=== PATIENT | male | born 1950 | race Caucasian/White ===

== ENCOUNTER 2021-03-10 10:59 | Emergency (ER) | payer MEDICARE, SELFPAY ==
--- NOTE | ~2021-03-10 | MR_ITS ---
MRI OF THE BRAIN WITHOUT IV CONTRAST INDICATION: Possible hemorrhagic contusion on CT. COMPARISON: Head CT 03/10/2021. TECHNIQUE: Multiplanar multisequence MR imaging of the brain was obtained without IV contrast. FINDINGS: There is no hydrocephalus, extra-axial surface collection, or herniation. There is global cerebral volume loss and there is mild chronic microangiopathy. The major flow voids at the skull base are preserved. There is no acute infarct on diffusion-weighted imaging. There is no intracranial hemorrhage on the gradient recalled echo acquisition. The midline structures are normal. The cerebellar tonsils are normally positioned. The cerebellum and brainstem are normal. The craniocervical junction is normal. Osseous marrow signal intensity is homogenous. There is left parietal scalp swelling. MR/MR head/brain wo con IMPRESSION: - The previous CT finding was artifactual. There are no hemorrhagic contusions. - There is global cerebral volume loss and there is mild chronic microangiopathy. - There is left parietal scalp swelling.
--- NOTE | ~2021-03-10 | CT_ITS ---
EXAMINATION: CT BRAIN AND CT CERVICAL SPINE WITHOUT CONTRAST. CLINICAL INFORMATION: Fall and head strike. COMPARISON: None TECHNIQUE: 5 mm thin axial and reformatted 2 mm thin sagittal and coronal images of brain were obtained. Axial 3 mm thin and reformatted 2 mm thin sagittal and coronal images of cervical spine were obtained. DLP 1207 FINDINGS: Brain: There is no acute extra-axial bleed, masses or midline shift. There is hyperdensity seen along the left inferior frontal lobe cortex question contusion versus the heart and artifact. It is visualized on axial image 129/8 and sagittal image 43/11. There is no acute infarction in evolution. The lateral ventricles are symmetrical in size and configuration without enlargement. The nava to white matter difference is maintained. Bone windows reveal no calvarial abnormality. There is a left parietal scalp hematoma Bilateral paranasal sinuses and mastoid air cells are well-aerated. Cervical spine: There is mild straightening of cervical lordosis. The vertebral heights and alignment is normal. There is loss of C3-C4, C4-C5 and C6-C7 disc heights with moderate ventral and mild posterior spondylosis. The craniovertebral junction and C1-C2 alignment is normal. The thyroid, submandibular and parotid glands are symmetrical and normal. The prevertebral and paravertebral soft tissues are normal. CT/CT cervical spine wo con IMPRESSION: Left posterior parietal lobe scalp hematoma but no calvarial fracture. No underlying parietal lobe abnormality. Slight hyperdensity along the left inferior frontal lobe question hemorrhagic contusion versus artifact. Correlate with clinical history. There is no acute fracture, dislocation or subluxation the cervical spine. There are degenerative disc changes as described above.
[2021-03-10 11:08] VITALS: BP 106/84; BP 128/79; PULSE 76; PULSE 78; RESP 18; TEMP 36.7; O2SAT 96; O2SAT 97; BMI 25.1
--- NOTE | 2021-03-10 11:20 | ED.ALCOHOL ---
HPI - Alcohol General Chief Complaint: ETOH/Substance Use Stated Complaint: FALL? ETOH INTOX Time Seen by Provider: 03/10/21 11:20 Source: patient and EMS Mode of arrival: EMS Limitations: altered mental status History of Present Illness HPI narrative: 70 y/o male with history of rheumatoid arthritis, DM, HLD, osteoporosis who presents to the ER via EMS after he tripped and fell in front of the hospital just prior to arrival. He admits to drinking 3 beers and 3 scotch drinks [employer]. He drinks daily and has no interest in detox or sobriety. He denies any pain or injuries but states he did hit the back of his head. He is not on blood thinners and has no headache or neck pain. He denies chest pain, dizziness or lightheadedness. MD complaint: alcohol intoxication Last drink: Hours (ago) Chronic alcohol use: Yes Previous visits for alcohol intoxication: No Recent trauma: Yes Related Data Home Medications Medication Instructions Recorded Confirmed alendronate 70 mg tablet 70 mg PO QWEEK 09/23/20 09/23/20 atorvastatin 10 mg tablet 10 mg PO DAILY 09/23/20 09/23/20 bupropion HCl 100 mg tablet 100 mg PO BID 09/23/20 09/23/20 glipizide 5 mg tablet 5 mg PO DAILY 09/23/20 09/23/20 metformin 500 mg tablet 500 mg PO DAILY 09/23/20 09/23/20 sertraline 50 mg tablet 50 mg PO DAILY 09/23/20 09/23/20 Previous Rx's Medication Instructions Recorded tofacitinib 11 mg tablet,extended 11 mg PO DAILY #30 tab 09/08/20 release 24 hr prednisone 10 mg tablet 10 mg PO DAILY #30 tab 03/10/21 Allergies Allergy/AdvReac Type Severity Reaction Status Date / Time Unable to Assess Allergy Unverified 03/10/21 11:21 Review of Systems Review of Systems: Constitutional: No Fever, No Chills Cardiovascular: No Chest Pain, No SOB Respiratory: No Cough, No Sputum Gastrointestinal: No Nausea, No Vomiting, No Diarrhea, No abdominal Pain Genitourinary: No Dysuria, No Urinary Frequency, No Hematuria Musculoskeletal: No joint pain, No Myalgias Skin: +Skin Lesions, No rash Neuro: No Weakness, No Numbness, No Dizziness, No Headache Psych: No Anxiety/Panic, No Depression Heme/Lymph: + Bruising, No Lymphadenopathy [facility] Past Medical History Attestation statement: The following information was validated with the patient. Medical History Osteoporosis Seropositive rheumatoid arthritis Social History Social History Alcohol intake: current Alcohol intake frequency: 3 or more drinks per day Alcohol type: beer Smoking Status: Never smoker Use of substances other than those prescribed or required for medical reasons: No Advance Directives: No Advance Directives Information Provided: No Physical Exam Vital Signs: Vital Signs: Last Vital Signs Temp 98.1 F 03/10/21 11:08 Pulse 78 03/10/21 11:08 Resp 18 03/10/21 11:08 BP 106/84 03/10/21 11:08 Pulse Ox 97 03/10/21 11:08 Body Mass Index 25.1 Appearance: Alert. Oriented X3. No acute distress. Intoxicated. Head: left posterior scalp with large hematoma, superficial abrasions, no active bleeding, no deformity or palpable skull fractures. Eyes: Pupils equal, round and reactive to light. EOMI, no nystagmus. ENT: Pharynx normal. Dentition is poor, mucus membranes are moist. TMs are normal bilaterally. Neck: Normal inspection. Neck supple. CVS: Normal heart rate and rhythm. Pulses normal. Respiratory: No respiratory distress. Breath sounds normal. Abdomen: Soft and nontender. +BS x4 Skin: Skin warm and dry. Normal skin color. Normal skin turgor. No rashes. Extremities: No lower extremity edema. Pelvis is stable. Nontender shoulders and elbows, normal ROM. Neuro: Oriented X 3. No motor deficit. No sensory deficit. Intoxicated however ambulates with a steady gait. Course Course Course Narrative: 70 y/o male presenting s/p witnessed mechanical fall in the setting of ETOH intoxication. Neuro exam is non-focal. Will get CT head given known trauma as well as basic lab workup. Patient agreeable with plan. Pleasant and cooperative. Reevaluation(s) Reevaluation #1: CT head showing possible hemorrhagic contusion in the frontal lobe. Will get MRI for further assessment. ETOH level 200s. Reevaluation #2: MRI brain is unremarkable, NO hemorrhagic contusion appreciated. He has a sober ride home, declining detox. Stable for discharge home. MDM - Alcohol Lab Data Result diagrams: 03/10/21 11:51 03/10/21 11:51 Labs: Lab Results 03/10/21 03/10/21 03/10/21 Range/Units 11:51 11:51 11:51 WBC 6.2 (4.8-10.8) X10*3/uL RBC 4.02 L (4.60-5.80) X10*6/uL Hgb 13.2 L (14.0-18.0) g/dl Hct 37.1 L (42-52) % MCV 92.3 (80-98) fL MCH 32.8 (27.0-33.0) pg MCHC 35.6 (31.0-36.0) g/dl RDW 13.4 (11.0-16.0) % Plt Count 150 L (160-400) X10*3/uL MPV 10.2 (9.4-12.4) fL Immature Gran % (Auto) 1.0 H (0.0-0.4) % Neut % (Auto) 63.1 (45-73) % Lymph % (Auto) 28.0 (20-40) % Bucks % (Auto) 6.8 (2-11) % Eos % (Auto) 0.8 (0-4) % Baso % (Auto) 0.3 (0-2) % Lymph # (Auto) 1.7 (1.2-4.9) X10*3/uL Bucks # (Auto) 0.4 (0.1-1.2) X10*3/uL Eos # (Auto) 0.1 (0.0-0.4) X10*3/uL Baso # (Auto) 0.0 (0.0-0.2) X10*3/uL Abs Immat Gran (auto) 0.06 H (0.00-0.03) X10*3/uL Absolute Neuts (auto) 3.9 (2.0-8.3) X10*3/uL Absolute Nucleated RBC 0.000 (0.0-0.012) X10*3/uL Nucleated RBC % (auto) 0.0 (0.0-0.2) /100WBC Sodium 131 L (135-145) mmol/L Potassium 4.3 (3.3-5.1) mmol/L Chloride 100 (96-108) mmol/L Carbon Dioxide 22 (22-29) mmol/L Anion Gap 13 (12-20) BUN 19 H (9-16) mg/dL Creatinine 1.30 (0.5-1.4) mg/dL Estim Creat Clear Calc 52.1 Estimated GFR 54 Random Glucose 223 H (60-115) mg/dL Calcium 8.7 (8.4-10.2) mg/dL Magnesium 1.8 (1.6-2.6) mg/dL Total Bilirubin 1.2 H (0.0-1.0) mg/dL Direct Bilirubin 0.4 (0.0-0.5) mg/dL AST 26 (5-37) U/L ALT 22 (0-40) U/L Alkaline Phosphatase 79 (39-117) U/L Total Protein 6.7 (6.5-8.0) g/dL Albumin 4.0 (3.5-5.0) g/dL Ethyl Alcohol 216 mg/dL Discharge Plan Discharge Clinical Impression: Alcoholic intoxication Qualifiers: Complication of substance-induced condition: uncomplicated Qualified Code(s): F10.920 - Alcohol use, unspecified with intoxication, uncomplicated Scalp hematoma Qualifiers: Encounter type: initial encounter Qualified Code(s): S00.03XA - Contusion of scalp, initial encounter Patient Disposition: Home, Self-Care Instructions: Alcohol Dependence (ED), Hematoma (ED), Alcohol Use Disorder (ED) Additional Instructions: DO NOT DRINK ALCOHOL. IT CAN KILL YOU Recommend detox Use ice to your scalp hematoma to help with pain and swelling. Take Motrin and/or Tylenol as needed for pain. Follow up with your doctor next week. Prescriptions: No Action Xeljanz XR 11 mg tablet extended release 24 hr 11 mg PO DAILY Qty: 30 RF: 2 prednisone 10 mg tablet 10 mg PO DAILY Qty: 30 RF: 3 metformin 500 mg tablet 500 mg PO DAILY RF: 0 glipizide 5 mg tablet 5 mg PO DAILY RF: 0 atorvastatin 10 mg tablet 10 mg PO DAILY RF: 0 sertraline [Zoloft] 50 mg tablet 50 mg PO DAILY RF: 0 bupropion HCl 100 mg tablet 100 mg PO BID RF: 0 alendronate [Fosamax] 70 mg tablet 70 mg PO QWEEK RF: 0
--- NOTE | 2021-03-10 11:33 | MHC.RECOVSUP ---
? Reason for consult:Continuity of care o Current location: ED- 22 o Identified substance use concern:ETOH - Support ? Intervention o Community resources provided o Harm reduction discussion ? Plan: o Patient to follow up with H after discharge ? Additional information: Spoke with patient re:detox-pt. refused. Spoke with him re:MAR patient stated he knew more than I did pt refused all treatment options.
[2021-03-10 11:48] VITALS: PULSE 72
[2021-03-10 11:55] LABS: MANUAL DIFF FLAG NO
[2021-03-10 11:56] LABS: Basophils Percent Auto 0.3 % (0-2); Eosinophils Absolute Auto 0.1 X10*3/uL (0.0-0.4); Eosinophils Percent Auto 0.8 % (0-4); Hematocrit 37.1 % (42-52); Hemoglobin 13.2 g/dl (14.0-18.0); Imm Gran Abs Auto 0.06 X10*3/uL (0.00-0.03); Lymphocytes Absolute Auto 1.7 X10*3/uL (1.2-4.9); Mean Corpuscular HGB Conc 35.6 g/dl (31.0-36.0); Mean Corpuscular Hemoglobin 32.8 pg (27.0-33.0); Mean Corpuscular Volume 92.3 fL (80-98); Mean Platelet Volume 10.2 fL (9.4-12.4); Monocytes Absolute Auto 0.4 X10*3/uL (0.1-1.2); Monocytes Percent Auto 6.8 % (2-11); Neutrophils Absolute Auto 3.9 X10*3/uL (2.0-8.3); Neutrophils Percent Auto 63.1 % (45-73); Platelet Count 150 X10*3/uL (160-400); Red Blood Count 4.02 X10*6/uL (4.60-5.80); Red Cell Distribution Width 13.4 % (11.0-16.0); White Blood Count 6.2 X10*3/uL (4.8-10.8)
[2021-03-10 12:28] LABS: Ethanol 216 mg/dL
[2021-03-10 12:31] LABS: Alanine Aminotransferase 22 U/L (0-40); Alkaline Phosphatase 79 U/L (39-117); Anion Gap 13 (12-20); Aspartate Amino Transferase 26 U/L (5-37); Bilirubin Direct 0.4 mg/dL (0.0-0.5); Bilirubin Total 1.2 mg/dL (0.0-1.0); Blood Urea Nitrogen 19 mg/dL (9-16); Calcium 8.7 mg/dL (8.4-10.2); Carbon Dioxide 22 mmol/L (22-29); Chloride 100 mmol/L (96-108); Creatinine Clr Calc Pharmacy 52.1; Estimated Glomerular Filt Rate 54; Glucose Random 223 mg/dL (60-115); Magnesium 1.8 mg/dL (1.6-2.6); Potassium 4.3 mmol/L (3.3-5.1); Sodium 131 mmol/L (135-145); Total Protein 6.7 g/dL (6.5-8.0)
== END 2021-03-10 16:01 | disposition home or self-care (01) ==
PROVIDERS: Physician Assistant; Emergency Provider Emergency Medicine Emergency Medical Services; PCP Internal Medicine
DX: F10.920 Alcohol use, unspecified with intoxication, uncomplicated (principal); Y90.7 Blood alcohol level of 200-239 mg/100 ml; S00.03XA Contusion of scalp, initial encounter; W01.0XXA Fall on same level from slipping, tripping and stumbling without subsequent striking against object, initial encounter; Y93.01 Activity, walking, marching and hiking; Y92.238 Other place in hospital as the place of occurrence of the external cause; Y99.9 Unspecified external cause status; M05.9 Rheumatoid arthritis with rheumatoid factor, unspecified; Z79.52 Long term (current) use of systemic steroids
CPT/HCPCS: 36415; 70450; 70551; 72125; 80048; 80076; 80320; 83735; 85025; 99285

== ENCOUNTER 2021-03-10 16:17 | Outpatient (REF) | payer MEDICARE, OTHER, SELFPAY ==
[2021-03-10 16:45] LABS: MANUAL DIFF FLAG NO
[2021-03-10 16:47] LABS: Basophils Percent Auto 0.3 % (0-2); Eosinophils Percent Auto 0.6 % (0-4); Hematocrit 41.5 % (42-52); Hemoglobin 14.4 g/dl (14.0-18.0); Imm Gran Abs Auto 0.05 X10*3/uL (0.00-0.03); Imm Gran Pct Auto 0.8 % (0.0-0.4); Lymphocytes Absolute Auto 1.9 X10*3/uL (1.2-4.9); Lymphocytes Percent Auto 30.4 % (20-40); Mean Corpuscular HGB Conc 34.7 g/dl (31.0-36.0); Mean Corpuscular Hemoglobin 32.1 pg (27.0-33.0); Mean Corpuscular Volume 92.4 fL (80-98); Monocytes Absolute Auto 0.4 X10*3/uL (0.1-1.2); Monocytes Percent Auto 5.9 % (2-11); Neutrophils Absolute Auto 3.9 X10*3/uL (2.0-8.3); Platelet Count 159 X10*3/uL (160-400); Red Blood Count 4.49 X10*6/uL (4.60-5.80); Red Cell Distribution Width 13.4 % (11.0-16.0); White Blood Count 6.3 X10*3/uL (4.8-10.8)
[2021-03-10 17:19] LABS: Alanine Aminotransferase 26 U/L (0-40); Albumin Level 4.4 g/dL (3.5-5.0); Alkaline Phosphatase 88 U/L (39-117); Anion Gap 15 (12-20); Aspartate Amino Transferase 23 U/L (5-37); Bilirubin Total 1.6 mg/dL (0.0-1.0); Blood Urea Nitrogen 18 mg/dL (9-16); C Reactive Protein 0.32 mg/dL (< or = 0.50); Calcium 9.3 mg/dL (8.4-10.2); Carbon Dioxide 24 mmol/L (22-29); Chloride 102 mmol/L (96-108); Cholesterol 189 mg/dL; Estimated Glomerular Filt Rate 54; Glucose Random 168 mg/dL (60-115); HDL Cholesterol 52 mg/dL; LDL Cholesterol Calculated 67 mg/dl; Potassium 4.7 mmol/L (3.3-5.1); Sodium 136 mmol/L (135-145); Total Protein 7.5 g/dL (6.5-8.0); Triglycerides 352 mg/dL
[2021-03-10 17:29] LABS: Erythrocyte Sedimentation Rate 13 MM/HR (0-15)
[2021-03-10 17:31] LABS: Reflex LDLD? No
== END 2021-03-10 16:18 | disposition home or self-care (01) ==
LOC: HO.LAB 16:17
PROVIDERS: Visit Provider Student in an Organized Health Care Education/Training Program
DX: M05.9 Rheumatoid arthritis with rheumatoid factor, unspecified (principal); Z13.89 Encounter for screening for other disorder
CPT/HCPCS: 36415; 70450; 70551; 72125; 80048; 80053; 80061; 80076; 80320; 82248; 83735; 85025; 85652; 86140; 99285

== ENCOUNTER 2021-07-27 11:02 | Outpatient (REF) | payer MEDICARE, OTHER, SELFPAY ==
[2021-07-27 11:17] LABS: MANUAL DIFF FLAG NO
[2021-07-27 11:57] LABS: Basophils Percent Auto 0.4 % (0-2); Eosinophils Absolute Auto 0.1 X10*3/uL (0.0-0.4); Eosinophils Percent Auto 1.2 % (0-4); Hematocrit 42.5 % (42-52); Hemoglobin 14.6 g/dl (14.0-18.0); Imm Gran Abs Auto 0.02 X10*3/uL (0.00-0.03); Imm Gran Pct Auto 0.4 % (0.0-0.4); Lymphocytes Absolute Auto 0.5 X10*3/uL (1.2-4.9); Lymphocytes Percent Auto 8.3 % (20-40); Mean Corpuscular HGB Conc 34.4 g/dl (31.0-36.0); Mean Corpuscular Hemoglobin 32.3 pg (27.0-33.0); Mean Platelet Volume 10.9 fL (9.4-12.4); Monocytes Absolute Auto 0.6 X10*3/uL (0.1-1.2); Monocytes Percent Auto 10.3 % (2-11); Neutrophils Absolute Auto 4.5 X10*3/uL (2.0-8.3); Neutrophils Percent Auto 79.4 % (45-73); Platelet Count 149 X10*3/uL (160-400); Red Blood Count 4.52 X10*6/uL (4.60-5.80); Red Cell Distribution Width 12.8 % (11.0-16.0); White Blood Count 5.7 X10*3/uL (4.8-10.8)
[2021-07-27 12:30] LABS: Alanine Aminotransferase 16 U/L (0-40); Albumin Level 4.3 g/dL (3.5-5.0); Alkaline Phosphatase 97 U/L (39-117); Anion Gap 16 (12-20); Aspartate Amino Transferase 19 U/L (5-37); Bilirubin Total 0.9 mg/dL (0.0-1.0); Blood Urea Nitrogen 19 mg/dL (9-16); C Reactive Protein 3.04 mg/dL (< or = 0.50); Calcium 9.4 mg/dL (8.4-10.2); Carbon Dioxide 25 mmol/L (22-29); Chloride 102 mmol/L (96-108); Cholesterol 179 mg/dL; Estimated Glomerular Filt Rate 54; Glucose Random 195 mg/dL (60-115); HDL Cholesterol 40 mg/dL; LDL Cholesterol Calculated 91 mg/dl; Potassium 4.1 mmol/L (3.3-5.1); Sodium 139 mmol/L (135-145); Total Protein 7.6 g/dL (6.5-8.0); Triglycerides 242 mg/dL
[2021-07-27 12:38] LABS: Erythrocyte Sedimentation Rate 57 MM/HR (0-15)
[2021-07-27 13:12] LABS: Reflex LDLD? No
== END 2021-07-27 11:03 | disposition home or self-care (01) ==
LOC: HO.LAB 11:02
PROVIDERS: Visit Provider Nurse Practitioner Family
DX: M05.9 Rheumatoid arthritis with rheumatoid factor, unspecified (principal)
CPT/HCPCS: 36415; 80053; 80061; 85025; 85652; 86140

== ENCOUNTER → 2021-08-03 09:57 | Outpatient (BNVA) | payer MEDICARE, OTHER, SELFPAY | PROVIDERS: PCP Internal Medicine; Visit Provider Nurse Practitioner Family | DX: M05.9 Rheumatoid arthritis with rheumatoid factor, unspecified (principal); M81.0 Age-related osteoporosis without current pathological fracture; Z79.52 Long term (current) use of systemic steroids | CPT/HCPCS: 99212 ==

== ENCOUNTER 2022-03-13 13:09 | Outpatient (REF) | payer MEDICARE, OTHER, SELFPAY ==
[2022-03-13 15:29] LABS: Cholesterol 134 mg/dL; HDL Cholesterol 29 mg/dL; LDL Cholesterol Calculated 65 mg/dl; Triglycerides 204 mg/dL
[2022-03-13 17:54] LABS: Reflex LDLD? No
[2022-03-13 21:11] LABS: Alanine Aminotransferase 11 U/L (0-40); Albumin Level 3.7 g/dL (3.5-5.0); Alkaline Phosphatase 80 U/L (39-117); Anion Gap 13 (12-20); Aspartate Amino Transferase 12 U/L (5-37); Bilirubin Total 0.7 mg/dL (0.0-1.0); Blood Urea Nitrogen 21 mg/dL (9-16); C Reactive Protein 1.36 mg/dL (< or = 0.50); Calcium 9.2 mg/dL (8.4-10.2); Carbon Dioxide 24 mmol/L (22-29); Chloride 107 mmol/L (96-108); Estimated Glomerular Filt Rate 56; Glucose Random 169 mg/dL (60-115); Potassium 4.1 mmol/L (3.3-5.1); Sodium 140 mmol/L (135-145)
[2022-03-13 21:30] LABS: Vitamin D 25-OH Total 24.1 ng/mL (>30)
[2022-03-14 07:05] LABS: HBS Num1 0.79 mIU/mL (0-7.99); HBc Num1 0.11 S/CO (0.00-0.79); HBsAGNum1 0.18 S/CO (0.00-0.99); Hepatitis B Core Antibody Nonreactive (Nonreactive); Hepatitis B Surface Antigen Negative (Negative); ~HepC Num1 0.16 S/CO (0.00-0.79); ~Hepatitis B Surface Antibody NONREACTIVE (Nonreactive); ~Hepatitis C Antibody Nonreactive (Nonreactive)
[2022-03-15 06:40] LABS: Hepatitis A Antibody IgM 0.18 Index (0-0.79); ~Hepatitis A Antibody IgM Nonreactive (Nonreactive)
== END 2022-03-13 13:10 | disposition home or self-care (01) ==
LOC: HO.LAB 13:09
PROVIDERS: PCP Internal Medicine; Visit Provider Nurse Practitioner Family
DX: M05.9 Rheumatoid arthritis with rheumatoid factor, unspecified (principal); M81.0 Age-related osteoporosis without current pathological fracture; E78.5 Hyperlipidemia, unspecified; Z79.52 Long term (current) use of systemic steroids
CPT/HCPCS: 36415; 80053; 80061; 82306; 86140; 86704; 86706; 86709; 86803; 87340; 99212

== ENCOUNTER 2022-04-07 09:46 | Outpatient (REF) | payer MEDICARE, MEDICAID, SELFPAY ==
--- NOTE | ~2022-04-07 | MM_ITS ---
EXAMINATION: BONE DENSITOMETRY CLINICAL INDICATION: Age-related osteoporosis without current pathological fracture. COMPARISON: Baseline BD dated 12/06/2018. TECHNIQUE: Using a [employer] DXA System (software version: 13.1) manufactured by [employer], dual-energy x-ray absorptiometry was performed of the lumbar spine and left hip. The images are of good technical quality. Summary results are attached. FINDINGS: AP SPINE L1-L4: Current: BMD 1.163 g/cm2, Z-score 0.1, T-score -0.5, normal, 7.8% decrease from baseline (<5% change is not significant). Baseline: BMD 1.262 g/cm2. LEFT FEMUR, NECK: Current: BMD 0.814 g/cm2, Z-score -0.7, T-score -2.0, osteopenia. Baseline: BMD 0.869 g/cm2. LEFT FEMUR, TOTAL: Current: BMD 0.884 g/cm2, Z-score -0.7, T-score -1.5, osteopenia, 5.3% decrease from baseline (<5% change is not significant). Baseline: BMD 0.933 g/cm2. IDENTIFIED RISK FACTORS: Rheumatoid arthritis, tobacco use (current smoker), alcoholism, low calcium intake, glucocorticoids (chronic). HISTORY OF FRACTURE: None listed. MEDICATIONS: Vitamin D. MM/XR DEXA axial skeleton IMPRESSION: 1. DIAGNOSIS: Osteopenia based on the lowest T-score value of -2.0 in the femoral neck applying World Health Organization criteria. 2. 10-YEAR FRACTURE RISK PREDICTION, FRAX: Major osteoporotic fracture (clinical spine, forearm, hip or shoulder) 20.8%. Hip fracture 11.8%. 3. Treatment Recommendations: NOF guidelines recommend consideration for treatment in postmenopausal women and men age 50 and older presenting with the following: -A hip or vertebral (clinical or morphometric) fracture. -T-score less than or equal to -2.5 at the femoral neck or spine after appropriate evaluation to exclude secondary causes. -Low bone mass at the hip or spine and a 10-year fracture probability by FRAX of greater than or equal to 3% for hip fracture or greater than or equal to 20% for major osteoporotic fracture based on the [place] adapted WHO algorithm. 4. Other Recommendations: All treatment decisions require clinical judgment and consideration of individual patient factors, including patient preferences, comorbidities, previous drug use, risk factors not captured in the FRAX model (e.g. frailty, falls, vitamin D deficiency, increased bone turnover, interval significant decline in bone density) and possible under or overestimation of fracture risk by FRAX. Additional medical evaluation for secondary cause of low bone mineral density may be appropriate. FUTURE SCAN RECOMMENDATION: People with diagnosed cases of osteoporosis or at high risk for fracture should have regular bone mineral density tests. For patients eligible for Medicare, routine testing is allowed once every 2 years. The testing frequency can be increased to one year for patients who have rapidly progressing disease, those who are receiving or discontinuing medical therapy to restore bone mass, or have additional risk factors.
== END 2022-04-07 09:47 | disposition home or self-care (01) ==
LOC: HO.MAMMO 09:46
PROVIDERS: Visit Provider Nurse Practitioner Family
DX: M81.0 Age-related osteoporosis without current pathological fracture (principal)
CPT/HCPCS: 77080

== ENCOUNTER 2022-06-01 09:00 | Outpatient (RCR) | payer MEDICARE, MEDICAID, SELFPAY ==
--- NOTE | 2022-04-05 13:50 | MHC.PT.EP ---
[facility] [place] Office [place] Office [place] Office [address] [phone] F: [phone] F: [phone] F: [phone] F: [phone] Physical Therapy Plan of Care Date of Evaluation: Date of Surgery: Diagnosis: Abnormalities of gait and mobility Assessment: Patient is a 71 year old R handed male who presents with s/s consistent with abnormalities of gait and mobility. 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 Patient past medical history includes falls, great toe amputation, and alcohol abuse. Current impairments include pain, balance, safety, independence, ROM, strength, activity tolerance and functional mobility. Functional limitations include decreased ability to .walk, stand, negotiate stairs, golf, and perform standing activities. Patient is motivated with good rehab potential. Skilled PT will address impairments and functional limitations in order to achieve goals. Frequency and Duration: The patient will be seen 2x/week for 5 weeks Short Term Goals: I with HEP - 2 weeks Able to bike 10 minutes without rest - 2 weeks Mow lawn for 10 minutes without rest - 3 weeks [employer] Goals: LEFS 40/80 - 5 weeks LE strength 4/5 grossly - 5 weeks SLB > 10 seconds b/l - 5 weeks Treatment Plan: Modalities to reduce pain, spasms and effusion. Manual therapy to restore motion and function. Therapeutic exercise to improve strength and flexibility. Neuromuscular re-education for posture and balance. Therapeutic activities to return to functional activities of daily living. Electronically signed by: Samuel Slade, PT Please sign and return to therapist. Thank you for your referral.
--- NOTE | 2022-07-13 11:16 | MHC.PT.DC ---
[facility] [place] Office [place] Office [place] Office [address] Fre[address]ustam[address] [phone] F: [phone] F: [phone] F: [phone] F: [phone] Physical Therapy Discharge Report Diagnosis: Abnormalities of gait and mobility Date of Surgery: Date of Evaluation: 04/04/22 Date of Discharge: 07/03/22 Treatments to Date: 13 Cancellations to Date: No Shows to Date: Discharge Status: Improved Function Independent with HEP Discharge Summary: 06/01/22: pt is I with HEP. He is able to bike 12 minutes without rest. LEFS 26/80. LE strength 4-/5 grossly. SLB 4 seconds b/l. He is motivated to keep up with HEP. He is appropriate to d/c to HEP at this time. 05/30/22: on pace to d/c to HEP [place]. we will updated HEP and further instruct on progression. 05/25/22: pt progressed with loaded walking, golf sim outside of //. no adverse reactions. 1 more week then d/c to HEP. 05/19/22: pt HEP updated. we discussed progression for 2 more weeks then transition to HEP. 05/17/22: Pt motivated to continue with HEP. he has progressed modestly but does have goals he plans to continue to pursue with HEP. Electronically signed by: Samuel Slade, PT Please sign and return to therapist. Thank you for your referral.
== END 2022-07-13 11:16 | disposition home or self-care (01) ==
LOC: HO.PTCHIC 09:00
PROVIDERS: PCP Internal Medicine; Visit Provider Nurse Practitioner Family
DX: R26.89 Other abnormalities of gait and mobility (principal)
CPT/HCPCS: 97110; 97112; 97163

== ENCOUNTER 2022-06-14 12:51 | Outpatient (REF) | payer MEDICARE, MEDICAID, SELFPAY ==
[2022-06-14 14:14] LABS: MANUAL DIFF FLAG NO
[2022-06-14 14:30] LABS: Basophils Percent Auto 0.5 % (0-2); Eosinophils Absolute Auto 0.3 X10*3/uL (0.0-0.4); Eosinophils Percent Auto 3.4 % (0-4); Hematocrit 36.9 % (42.0-52.0); Imm Gran Abs Auto 0.08 X10*3/uL (0.00-0.03); Lymphocytes Absolute Auto 1.2 X10*3/uL (1.2-4.9); Lymphocytes Percent Auto 14.9 % (20-40); Mean Corpuscular HGB Conc 32.5 g/dl (31.0-36.0); Mean Platelet Volume 10.1 fL (9.4-12.4); Monocytes Absolute Auto 0.5 X10*3/uL (0.1-1.2); Monocytes Percent Auto 6.6 % (2-11); Neutrophils Absolute Auto 5.8 x10*3/uL (2.0-8.3); Neutrophils Percent Auto 73.6 % (45-73); Platelet Count 139 X10*3/uL (160-400); Red Blood Count 4.29 X10*6/uL (4.60-5.80); White Blood Count 7.9 X10*3/uL (4.8-10.8)
[2022-06-14 14:37] LABS: Aspartate Amino Transferase 14 U/L (5-37); C Reactive Protein 0.54 mg/dL (< or = 0.50); Estimated Glomerular Filt Rate 55
[2022-06-14 15:08] LABS: Erythrocyte Sedimentation Rate 20 MM/HR (0-15)
[2022-06-17 00:36] LABS: TS Negative Control Passed; TS Panel A 0; TS Panel B 0; TS Positive Control Passed; TSpotTB Negative (Negative)
== END 2022-06-14 12:52 | disposition home or self-care (01) ==
LOC: HO.10HDL 12:51
PROVIDERS: Visit Provider Nurse Practitioner Family
DX: Z11.1 Encounter for screening for respiratory tuberculosis (principal); M05.9 Rheumatoid arthritis with rheumatoid factor, unspecified; M81.0 Age-related osteoporosis without current pathological fracture; Z79.52 Long term (current) use of systemic steroids
CPT/HCPCS: 36415; 82565; 84450; 85025; 85652; 86140; 86481; 99212

== ENCOUNTER 2022-09-27 13:13 | Outpatient (REF) | payer MEDICARE, MEDICAID, SELFPAY ==
--- NOTE | ~2022-09-27 | XR_ITS ---
EXAMINATION: XR BILATERAL HAND CLINICAL INFORMATION: Rheumatoid arthritis with rheumatoid factor. COMPARISON: None. TECHNIQUE : Three views of each hand. FINDINGS: RIGHT HAND: There is mild loss of PIP and DIP joint space. There is moderate loss of 1st MTP joint space with hypertrophic enthesophytes, juxta-articular osteopenia. Similar findings are seen along the ulnocarpal joint space and radioulnar joints space. There is mild loss of PIP joint space in the 3rd through 4th digits. No lytic or sclerotic process seen. The soft tissues are normal. No acute fracture or dislocation seen. LEFT HAND: There is mild loss of PIP and DIP joint spaces in the 2nd through 5th digits. The MCP joint space is preserved. There is mild osteopenia involving the carpal bones and extraocular osteoporosis along the metacarpal and phalanges. Moderate hypertrophic changes seen along the ulnocarpal joint with moderate soft tissue swelling. No visible acute fracture or dislocation seen. XR/XR hand RT min 3V IMPRESSION: 1. Rheumatoid arthritic changes suspected involving right hand 2nd MTP joint, bilateral PIP and DIP joints and bilateral ulnocarpal joints. There is juxta-articular osteopenia. 2. There is moderate soft tissue swelling along the ulnocarpal joint left wrist. There is no visible acute fracture or dislocation seen. There is mild osteopenia involving the carpal bones and phalanges of both hands. The osteopenia is most pronounced in the carpal bones of left hand.
--- NOTE | ~2022-09-27 | XR_ITS ---
EXAMINATION: XR BILATERAL HAND CLINICAL INFORMATION: Rheumatoid arthritis with rheumatoid factor. COMPARISON: None. TECHNIQUE : Three views of each hand. FINDINGS: RIGHT HAND: There is mild loss of PIP and DIP joint space. There is moderate loss of 1st MTP joint space with hypertrophic enthesophytes, juxta-articular osteopenia. Similar findings are seen along the ulnocarpal joint space and radioulnar joints space. There is mild loss of PIP joint space in the 3rd through 4th digits. No lytic or sclerotic process seen. The soft tissues are normal. No acute fracture or dislocation seen. LEFT HAND: There is mild loss of PIP and DIP joint spaces in the 2nd through 5th digits. The MCP joint space is preserved. There is mild osteopenia involving the carpal bones and extraocular osteoporosis along the metacarpal and phalanges. Moderate hypertrophic changes seen along the ulnocarpal joint with moderate soft tissue swelling. No visible acute fracture or dislocation seen. XR/XR hand LT min 3V IMPRESSION: 1. Rheumatoid arthritic changes suspected involving right hand 2nd MTP joint, bilateral PIP and DIP joints and bilateral ulnocarpal joints. There is juxta-articular osteopenia. 2. There is moderate soft tissue swelling along the ulnocarpal joint left wrist. There is no visible acute fracture or dislocation seen. There is mild osteopenia involving the carpal bones and phalanges of both hands. The osteopenia is most pronounced in the carpal bones of left hand.
[2022-09-27 13:37] LABS: MANUAL DIFF FLAG NO
[2022-09-27 15:05] LABS: Basophils Percent Auto 0.3 % (0-2); Eosinophils Absolute Auto 0.1 X10*3/uL (0.0-0.4); Eosinophils Percent Auto 2.4 % (0-4); Hematocrit 31.8 % (42.0-52.0); Hemoglobin 10.1 g/dl (14.0-18.0); Imm Gran Abs Auto 0.03 X10*3/uL (0.00-0.03); Imm Gran Pct Auto 0.5 % (0.0-0.4); Lymphocytes Absolute Auto 0.4 X10*3/uL (1.2-4.9); Lymphocytes Percent Auto 7.6 % (20-40); Mean Corpuscular HGB Conc 31.8 g/dl (31.0-36.0); Mean Corpuscular Hemoglobin 30.2 pg (27.0-33.0); Mean Corpuscular Volume 95.2 fL (80.0-98.0); Mean Platelet Volume 11.2 fL (9.4-12.4); Monocytes Absolute Auto 0.2 X10*3/uL (0.1-1.2); Neutrophils Absolute Auto 4.9 x10*3/uL (2.0-8.3); Neutrophils Percent Auto 85.2 % (45-73); Platelet Count 122 X10*3/uL (160-400); Red Blood Count 3.34 X10*6/uL (4.60-5.80); Red Cell Distribution Width 13.9 % (11.0-16.0); White Blood Count 5.8 X10*3/uL (4.8-10.8)
[2022-09-27 15:27] LABS: Alanine Aminotransferase 12 U/L (0-40); Aspartate Amino Transferase 11 U/L (5-37); C Reactive Protein 0.38 mg/dL (< or = 0.50); Estimated Glomerular Filt Rate 32
[2022-09-27 15:40] LABS: Erythrocyte Sedimentation Rate 31 MM/HR (0-15)
== END 2022-09-27 13:14 | disposition home or self-care (01) ==
LOC: HO.LAB 13:13
PROVIDERS: PCP Internal Medicine; Visit Provider Nurse Practitioner Family
DX: M05.9 Rheumatoid arthritis with rheumatoid factor, unspecified (principal); M81.0 Age-related osteoporosis without current pathological fracture; Z79.52 Long term (current) use of systemic steroids
CPT/HCPCS: 36415; 73130; 82565; 84450; 84460; 85025; 85652; 86140; 99212

== ENCOUNTER 2023-03-06 11:36 | Outpatient (REF) | payer MEDICARE, MEDICAID, SELFPAY ==
[2023-03-06 13:45] LABS: MANUAL DIFF FLAG NO
[2023-03-06 14:29] LABS: Basophils Percent Auto 0.5 % (0-2); Eosinophils Absolute Auto 0.4 X10*3/uL (0.0-0.4); Eosinophils Percent Auto 5.6 % (0-4); Hematocrit 32.9 % (42.0-52.0); Hemoglobin 10.8 g/dl (14.0-18.0); Imm Gran Abs Auto 0.05 X10*3/uL (0.00-0.03); Imm Gran Pct Auto 0.8 % (0.0-0.4); Lymphocytes Absolute Auto 0.8 X10*3/uL (1.2-4.9); Lymphocytes Percent Auto 12.3 % (20-40); Mean Corpuscular HGB Conc 32.8 g/dl (31.0-36.0); Mean Corpuscular Hemoglobin 29.1 pg (27.0-33.0); Mean Corpuscular Volume 88.7 fL (80.0-98.0); Mean Platelet Volume 10.4 fL (9.4-12.4); Monocytes Absolute Auto 0.4 X10*3/uL (0.1-1.2); Monocytes Percent Auto 6.8 % (2-11); Neutrophils Absolute Auto 4.8 x10*3/uL (2.0-8.3); Platelet Count 150 X10*3/uL (160-400); Red Blood Count 3.71 X10*6/uL (4.60-5.80); Red Cell Distribution Width 15.1 % (11.0-16.0); White Blood Count 6.5 X10*3/uL (4.8-10.8)
[2023-03-06 15:17] LABS: Erythrocyte Sedimentation Rate 51 MM/HR (0-15)
[2023-03-06 16:13] LABS: Vitamin D 25-OH Total 45.6 ng/mL (>30)
[2023-03-06 17:13] LABS: Alanine Aminotransferase 12 U/L (0-40); Aspartate Amino Transferase 13 U/L (5-37); Blood Urea Nitrogen 37 mg/dL (9-16); Estimated Glomerular Filt Rate 32
== END 2023-03-06 11:37 | disposition home or self-care (01) ==
LOC: HO.LAB 11:36
PROVIDERS: PCP Internal Medicine; Visit Provider Nurse Practitioner Family
DX: M05.9 Rheumatoid arthritis with rheumatoid factor, unspecified (principal); M81.0 Age-related osteoporosis without current pathological fracture; Z79.52 Long term (current) use of systemic steroids
CPT/HCPCS: 36415; 82306; 82565; 84450; 84460; 84520; 85025; 85652; 86140; 99212

== ENCOUNTER 2023-07-18 09:14 | Outpatient (AMB) | payer MEDICARE, MEDICAID, SELFPAY ==
--- NOTE | 2023-07-18 09:28 | A.OFFVIS_ITS ---
Intake Vital Signs 07/18/23 09:37 Height 5 ft 9 in Weight 186 lb 8.177 oz BMI 27.5 BP 130/78 Blood Pressure Location Lt brachial Position Sitting Pulse 72 Pulse Source Palpation Temp 98 F Temp Source Skin Intake Visit Reasons: RA Intake Note: Patient presents today for RA follow up. Per patient, upcoming prostate surgery this Sunday. Coordinator Of Genetic Services Required: No Accompanied by: Self / Same As Patient Allergies No Known Allergies Allergy (Verified 07/18/23 09:36) HPI HPI Comments History of Present Illness Details The patient returns today for evaluation of his rheumatoid arthritis. Presently he is taking just 2 of the 2.5 mg prednisone once a day. He says that has been effective at controlling his symptoms. In the past he had been treated with gold salts, methotrexate, and Xeljanz. The Xeljanz was particularly effective but it was discontinued when he developed vascular disease and required some toe amputations. Presently he has a Lee catheter in place because he has urinary outlet obstruction. There are plans for a TURP to be performed at the end of the week. He remains on alendronate once a week for o steoporosis. His primary doctor recently told him that his kidney function had worsened. His prostate surgery was delayed because he was found to have some infestation of bedbugs when he presented to be taken to the OR. 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 Social History Alcohol intake: current Alcohol intake frequency: 3 or more drinks per day Alcohol type: beer Patient Tobacco Use Status: Current everyday Tobacco user Tobacco use type: Cigarette Cigarettes Per Day: 10 Years Smoked: 50 years Review of Systems Const Details: Negative for appetite change, weight change, fever, chills, malaise and fatigue Eyes Details: Negative for vision change, dry eyes,headaches and dizziness Card Details: Negative chest pain, edema and syncope Resp Details: Negative for SOB, cough and wheezing GI Details: Negative indigestion/heartburn, nausea, abdominal pain, bowel changes, diarrhea, constipation and bloody stool. Endo Details: Negative for polyuria and polydypsia Sharath/Lymph Details: Negative for excessive bruising or bleeding. Physical Exam Vital Signs: Last Vital Signs Temp 98 F 07/18/23 09:37 Pulse 72 07/18/23 09:37 BP 130/78 07/18/23 09:37 BMI result Body Mass Index 27.5 APPEARANCE: Patient in no acute distress EYES no redness, pupils equal and reactive to light, eyelids normal ABD: Normal bowel sounds, no organomegaly, masses or tenderness. NEURO: Oriented and alert x3. No focal weakness. Reflexes symmetric. Gait normal. SKIN: No inflammatory or neoplastic lesions. Normal color and turgor JOINT EXAM: Cervical Spine:? Full range of motion without pain; no tenderness. Thoracic Spine:? No tenderness on palpation. Lumbar Spine:? Alignment normal.? Full range of motion without pain, no tenderness. Hands: LEFT:? Slight swelling of the 1st 3 MCP joints but no pain with motion or tenderness. There is no thenar atrophy or sensory loss. There is some slight thickening at the PIP joints but without tenderness. RIGHT: Normal pain-free range of motion with mild swelling at the 1st 3 MCP joints. The 2nd 3rd have some mild tenderness. The PIP joints have some minimal thickening without tenderness. No thenar atrophy or sensory loss. Wrists:? Right: Pain-free range of motion to 75 degrees of flexion or extension. No tenderness or swelling. Left: There is slight pain with flexion at 60 degrees or extension at 30 degrees with some minimal dorsal tenderness but no swelling. No redness or warmth. Elbows: Normal pain-free range of motion without tenderness, swelling, increased warmth or erythema. Shoulders:? Full range of motion without pain. No tenderness, weakness, swelling, increased warmth or erythema. Hips:? Full range of motion without pain. Hip bursa:? No tenderness. Knees:? Normal pain-free range of motion without tenderness, swelling, increased warmth or erythema.? There is no effusion or crepitation Ankles:? Normal pain-free range of motion without tenderness, swelling, increased warmth or erythema. Feet: LEFT: Normal pain-free range of motion without tenderness, swelling, increased warmth or erythema. Left great toe absent, no erythema, swelling or warmth noted. Faint pedal pulse, but the foot is pink and warm. RIGHT: No erythema, induration, swelling or warmth noted. The second toe was surgically removed years ago. The foot has normal pain free range of motion, without tenderness, swelling, increased warmth or erythema. ? Results Reviewed Results Reviewed: Laboratory Tests 03/06/23 13:45 ESR 51 H Creatinine 2.06 H C-Reactive Protein 0.80 H 25-OH Vitamin D Total 45.6 Yesterday's labs at [facility] showed a creatinine of2.5 Assessment & Plan Assessment & Plan (1) assisted systemic steroid user: Code(s): Z79.52 - assisted (current) use of systemic steroids (2) Osteoporosis: Comment: Alendronate started 11/2018 Code(s): M81.0 - Age-related osteoporosis without current pathological fracture Qualifiers: Osteoporosis type: age-related Presence of current pathological fracture: without current pathological fracture Qualified Code(s): M81.0 - Age- related osteoporosis without current pathological fracture (3) Seropositive rheumatoid arthritis: Comment: Maik: Prior to 2016-November 2021 -DMARDs held at that point because of recurrent foot infections. Low-dose prednisone continued Code(s): M05.9 - Rheumatoid arthritis with rheumatoid factor, unspecified Plan Rheumatoid arthritis with at present not much in the way of active synovitis with current low-dose prednisone. He has planned surgery so I do not think it is time to consider additional DMARD therapy. He should stay on the alendronate for his osteoporosis and the 5 mg daily for the prednisone. His renal function has also declined a bit and he has been referred to Nephrology mby the PCP.. When he was leaving we did notice that on his jacket were a bunch of small mobile bugs that look like they were bed bugs. He was told he should not put on his jacket and try to disinfect his clothing and bedsheets. He may need to have further measures at home to get rid of the bed bugs. We would see him back in about 4 months. Coding Level of Care Code Est Pt Level 3 (50945) Diagnoses intermediate card tender systemic steroid user Z79.52 Age-related osteoporosis without current pathological fracture M81.0 Osteoporosis type: age-related Presence of current pathological fracture: without current pathological fracture Seropositive rheumatoid arthritis M05.9
[2023-07-18 09:37] VITALS: BP 130/78; PULSE 72; TEMP 36.6; BMI 27.5
== END 2023-07-18 10:14 | disposition home or self-care (01) ==
PROVIDERS: PCP Internal Medicine; Visit Provider Internal Medicine Rheumatology
DX: M05.79 Rheumatoid arthritis with rheumatoid factor of multiple sites without organ or systems involvement (principal); Z79.52 Long term (current) use of systemic steroids; M81.0 Age-related osteoporosis without current pathological fracture
CPT/HCPCS: 99213

== ENCOUNTER → 2023-07-18 09:14 | Outpatient (BNVA) | payer MEDICARE, MEDICAID, SELFPAY | PROVIDERS: PCP Internal Medicine; Visit Provider Internal Medicine Rheumatology | DX: M81.0 Age-related osteoporosis without current pathological fracture (principal); M05.9 Rheumatoid arthritis with rheumatoid factor, unspecified; Z79.52 Long term (current) use of systemic steroids | CPT/HCPCS: 99212 ==

== ENCOUNTER 2023-07-31 12:07 | Emergency (ER) | payer MEDICARE, MEDICAID, SELFPAY ==
--- NOTE | 2023-07-31 12:12 | ED.NEUROSD ---
HPI - Neuro Symptoms/Deficit General Chief Complaint: Stroke Stated Complaint: STROKE ALERT 0845 LKWT Time Seen by Provider: 07/31/23 12:10 Related Data Home Medications Medication Instructions Recorded Confirmed acamprosate 333 mg tablet,delayed 666 mg PO TID 03/13/22 03/06/23 release apixaban 5 mg tablet 5 mg PO BID 03/13/22 aripiprazole 5 mg tablet (Abilify) 5 mg PO DAILY 03/13/22 bupropion HCl 100 mg tablet 100 mg PO DAILY 150 mg 03/13/22 03/06/23 clopidogrel 75 mg tablet 75 mg PO DAILY 03/13/22 03/06/23 glipizide 5 mg tablet 15 mg PO DAILY 03/13/22 03/06/23 aripiprazole 15 mg tablet 15 mg PO DAILY 06/14/22 bupropion HCl 300 mg 24 hr tablet, 300 mg PO DAILY 06/14/22 03/06/23 extended release tamsulosin 0.4 mg capsule 0.4 mg PO DAILY 09/27/22 03/06/23 atorvastatin 40 mg tablet 40 mg PO DAILY 03/06/23 03/06/23 cholecalciferol (vitamin D3) 25 25 mcg PO DAILY 03/06/23 03/06/23 mcg (1,000 unit) tablet (Vitamin D3) clonidine HCl 0.1 mg tablet 0.2 mg PO BEDTIME 03/06/23 03/06/23 metformin 1,000 mg tablet 1,000 mg PO BID 03/06/23 03/06/23 metoprolol succinate 50 mg 50 mg PO BID 03/06/23 03/06/23 tablet,extended release 24 hr sertraline 100 mg tablet 150 mg PO DAILY 03/06/23 03/06/23 Previous Rx's Medication Instructions Recorded alendronate 70 mg tablet 70 mg PO QWEEK #4 tabs 04/05/23 prednisone 2.5 mg tablet 5 mg (2 x 2.5 mg) PO DAILY #60 tabs 07/23/23 Allergies Allergy/AdvReac Type Severity Reaction Status Date / Time No Known Allergies Allergy Verified 07/18/23 09:36 [facility] Past Medical History Medical History (Updated 07/31/23 @ 13:31 by Tianna Damico MD) Major depressive disorder Hypertension Hyperlipidemia Type 2 diabetes mellitus with peripheral vascular disease Coronary artery disease Atrial fibrillation and flutter Peripheral vascular disease Alcohol dependence Osteoporosis Seropositive rheumatoid arthritis Surgical History Amputation of left great 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 Social History Social History Unable to assess alcohol history related to: Unknown Alcohol intake: current Alcohol intake frequency: 3 or more drinks per day Alcohol type: beer Patient Tobacco Use Status: Current everyday Tobacco user Tobacco use type: Cigarette Cigarettes Per Day: 10 Years Smoked: 50 years Smoked in Last 30 Days: No Use of substances other than those prescribed or required for medical reasons: No Advance Directives: Yes Advance Directives on File: Yes Advance Directives Date on File: 07/31/23 Physical Exam Vital Signs: Vital Signs: Last Vital Signs Temp 99.6 F 07/31/23 12:26 Pulse 93 07/31/23 12:26 Resp 18 07/31/23 12:26 BP 122/71 07/31/23 12:26 Pulse Ox 99 07/31/23 12:26 O2 Del Method Room Air 07/31/23 12:26 BMI result Body Mass Index 26.8 Medications Administered Discontinued Medications Generic Name Dose Route Start Last Admin Trade Name Freq PRN Reason Stop Dose Admin Iohexol 70 ml 07/31/23 12:51 07/31/23 12:52 Iohexol 350 Mg/Ml 100 Ml Infus..Btl IV 07/31/23 12:52 70 ml ONCE ONE Administration Medical Decision Making Medical Decision Making [facility] Narrative: 1210: Very difficult to evaluate the patient as he is lethargic, pupils were noted to be pinpoint but there is noted right facial asymmetry so will proceed with stroke protocol although suspect other etiologies such as infection, intracranial hemorrhage, medication. Patient did receive 1 mg of Narcan IV due to concerns for possible over sedation with opioids. 1235: [facility] informed me that on the noncontrast CT scan patient has a new small hypodensity in the right frontal lobe just superior to the caudate. 1236: I reached out to Neurology regarding patient's status, I have reviewed patient's chart and gotten the contact information for healthcare proxy which is his brother Uday Hennessy. 1242: I attempted to call Pt's HCP but there is no answer and the mailbox was full. 1253: Neurology does not recommend tPA at this time but does recommend MRI. 1254: [facility] is endorsing that patient has a dense left M1 occlusion that appears to be retrievable at this time and is in fact consistent with neurologic symptoms. 1256: I have updated Neurology with the recent CT angio findings and will contact [facility] at this time. 1300: EKG demonstrates atrial fibrillation and on discussion with our pharmacist patient had discontinuation of Eliquis 2 days ago. 1305: I discussed the case with Dr. Muller who reasonably recommends that we obtain further collateral information from healthcare proxy. However, he does recommend proceeding with tPA at this time. 1306: After further discussion with the healthcare facility they state that patient's last known well was at 08:45 and that they noticed changes at approximately 09:30 that began increasing. 1315: I discussed the risks and benefits with Sharlene Castro who is patient's healthcare proxy, , she has been informed of the risk of intracranial hemorrhage but the benefit of clot dissolution and she states that we should proceed with the tPA and also wishes to have intervention with clot retrieval. Reportedly patient ambulates at baseline and she denies any dementia. 1320: Isabel, marketing research coordinator at bedside and at this time delay in administration of tPA related to obtaining collateral information regarding current anti-coagulation medications, onset of symptoms, goals of care by family/HCP. Contacting Dr Muller for transfer. 1325: I discussed with Dr Muller who accepts transfer to the agriculture laborer for LVO extraction. tPA is running. Differential Diagnosis Differential Diagnoses: The differential diagnosis associated with the presentation includes Please see the discussion above Admission/Observation Consideration of admission/observation: Escalation of care including admission/observation considered Please see the discussion above Consult Healthcare Provider Management of the patient was discussed with: Classification Clerk Please see the discussion above Lab Data MDM Lab Attestation statement: I reviewed the patient's lab results. Please see the discussion above 07/31/23 12:57 07/31/23 12:57 Labs: Lab Results 07/31/23 07/31/23 Range/Units 12:13 12:57 WBC 5.3 (4.8-10.8) X10*3/uL RBC 2.95 L (4.60-5.80) X10*6/uL Hgb 8.4 L (14.0-18.0) g/dl Hct 25.8 L (42.0-52.0) % MCV 87.5 (80.0-98.0) fL MCH 28.5 (27.0-33.0) pg MCHC 32.6 (31.0-36.0) g/dl RDW 14.5 (11.0-16.0) % Plt Count 171 (160-400) X10*3/uL MPV 10.4 (9.4-12.4) fL Immature Gran % (Auto) 0.6 H (0.0-0.4) % Neut % (Auto) 85.3 H (45-73) % Lymph % (Auto) 6.0 L (20-40) % Smith % (Auto) 7.3 (2-11) % Eos % (Auto) 0.6 (0-4) % Baso % (Auto) 0.2 (0-2) % Lymph # (Auto) 0.3 L (1.2-4.9) X10*3/uL Smith # (Auto) 0.4 (0.1-1.2) X10*3/uL Eos # (Auto) 0.0 (0.0-0.4) X10*3/uL Baso # (Auto) 0.0 (0.0-0.2) X10*3/uL Abs Immat Gran (auto) 0.03 (0.00-0.03) X10*3/uL Absolute Neuts (auto) 4.5 (2.0-8.3) x10*3/uL Absolute Nucleated RBC 0.000 (0.0-0.012) X10*3/uL Nucleated RBC % (auto) 0.0 (0.0-0.2) /100WBC PT 15.7 H (11.1-13.3) SEC Whole Blood PT 17.6 H (11.1-13.5) sec INR 1.3 H (0.9-1.1) Whole Blood INR 1.5 H (0.9-1.1) APTT 34.1 (26.0-36.4) SEC POC Glucose 251 H (60-115) mg/dL Independent Interpretation I performed an independent interpretation of an: EKG Interpretation: Atrial fibrillation, HR-88, QRS/QTC are within normal limits, no STEMI. Radiology Impression Discussion of test interpretation with radiology: I have reviewed the radiologist's reading. Radiologist Impression: Please see the discussion above External Record Review External record reviewed: Prior outpatient labs, Prior outpatient radiology and Primary care record Chronic Conditions Patient?s care impacted by: Diabetes and Hypertension NIH Stroke Scale Internal: Initial- Upon Arrival Level of Consciousness: Not Alert; requires repeated stimulation, or strong of painful stim. Level of Consciousness Questions: Answers neither question correctly Level of Consciousness Commands: Performs neither task correctly Visual: Bilateral hemianopia (Cannot assess) Motor Arm (Right): No effort against gravity Motor Arm (Left): No drift Motor Leg (Right): No movement Motor Leg (Left): No movement Sensory: Severe to total sensory loss (Unable to assess) Best Language: Mute, global aphasia (Unable to assess) Dysarthia: Severe dysarthria (Unable to assess) Extinction and Inattention: Profound tyrone-inattention or extinction to more than one modality (Unable to assess) Critical Care Time Critical Care Time Critical Care Time: Yes Total Critical Care Time: 90 Attestation: I personally attest to this time spent taking care of the patient. Discharge Plan Discharge Clinical Impression: Stroke, Acute ischemic left MCA stroke Patient Disposition: Xfer [facility] Transfer Details: LVO retrieval Prescriptions: No Action alendronate 70 mg tablet 70 mg PO QWEEK Qty: 4 5RF prednisone 2.5 mg tablet 5 mg PO DAILY Qty: 60 3RF bupropion HCl 100 mg tablet 100 mg PO DAILY glipizide 5 mg tablet 15 mg PO DAILY acamprosate 333 mg tablet,delayed release (DR/EC) 666 mg PO TID apixaban 5 mg tablet 5 mg PO BID aripiprazole [Abilify] 5 mg tablet 5 mg PO DAILY clopidogrel 75 mg tablet 75 mg PO DAILY tamsulosin 0.4 mg capsule 0.4 mg PO DAILY aripiprazole 15 mg tablet 15 mg PO DAILY bupropion HCl 300 mg tablet extended release 24 hr 300 mg PO DAILY clonidine HCl 0.1 mg tablet 0.2 mg PO BEDTIME atorvastatin 40 mg tablet 40 mg PO DAILY metoprolol succinate 50 mg tablet extended release 24 hr 50 mg PO BID sertraline 100 mg tablet 150 mg PO DAILY cholecalciferol (vitamin D3) [Vitamin D3] 25 mcg (1,000 unit) tablet 25 mcg PO DAILY metformin 1,000 mg tablet 1,000 mg PO BID
[2023-07-31 12:26] VITALS: BP 122/71; BP 130/78; PULSE 80; PULSE 93; RESP 18; TEMP 37.6; O2SAT 98; O2SAT 99; BMI 26.8
--- NOTE | 2023-07-31 12:46 | PC.NURSE ---
pt given 1mg IVP narcan by EMS while in [place] for ? OD pt pupils pinpoint, takes oxycodone at SNF
--- NOTE | 2023-07-31 13:13 | PC.NURSE ---
pt daughter (Sharlene Castro) phone number
[2023-07-31 13:27] VITALS: BP 157/80; PULSE 107; RESP 24
--- NOTE | 2023-07-31 13:38 | PC.NURSE ---
TPA bolus 7.6ml given at 1329 UMAIR Roca at bedside to verify dose infusion running 76.1 ml/hr started at 1335
[2023-07-31 13:42] VITALS: BP 148/73; PULSE 108; RESP 22; O2SAT 96
--- NOTE | 2023-07-31 13:46 | PC.NURSE ---
at 1343 pt race became red, he appeared to be having difficulty breathing, ;MD at bedside. pt went into a run of Vtac - stopped tpa at this time with 51min remaining. HR increased to 144
--- NOTE | 2023-07-31 13:50 | PC.NURSE ---
resume tpa per MD order
[2023-07-31 13:51] VITALS: BP 141/77; PULSE 94; RESP 25; O2SAT 97
--- NOTE | 2023-07-31 14:25 | MHC.STROKE ---
1158 EMS PRE-NOTIFIED STROKE ALERT FROM [facility]. ARRIVED AT 1207 EXAMINED BY MD, NIHSS 20, RIGHT HEMIPARESIS, GAZE, APHASIA, NEGLECT. ONSET INITIALLY UNCLEAR AND IT WAS DETERMINED TO BE [id number], HE DID TAKE HIS AM MEDICATIONS. HE WAS JUST ADMITTED TO [facility] YESTERDAY FROM [facility]. DIRECT TO CT AND CTA NO BLEED, LEFT M1 OCCLUSION. CASE DISCUSSED WITH DR. REICH, SHE SPOKE WITH [facility] AND TPA-THROMBOLYTIC WAS ORDERED AT 1320 VERBAL ORDER TO PHARMACIST, PHARMACIST MIXED THE TPA, BP WITHIN RANGE IV TPA BOLUS GIVEN AT 1329. DTN = 82 MINUTES, [OVER THE > 60MIN BENCHMARK DUE TO MULTIPLE REASON, CLARIFICATION WITH FAMILY, CLARIFICATION ON ONSET, PINPOINT PUPILS, NARCAN GIVEN.] CLOSE MONITORING, PATIENT BEGAN HOLDING HIS BREATH AND CHANGE IN BREATHING BRIEFLY, HR INCREASED DRIP STOPPED AND MD AT BEDSIDE, SYMPTOMS RESOLVED OTHER THAN INCREASED HR. [facility] NEUROINTERVENTIONAL DR MARTÍNEZ ACCEPTED THE PATIENT IN TRANSFER, HE WILL GO DIRECTLY TO CATH-LAB. NPO, FAILED SWALLOW SCREEN. TRANSFERRED AT 1406 [id number] = 119MIN.
== END 2023-07-31 14:06 | disposition short-term general hospital (02) ==
PROVIDERS: Emergency Provider Student in an Organized Health Care Education/Training Program; PCP Family Medicine
DX: I63.9 Cerebral infarction, unspecified (principal); R29.810 Facial weakness; D64.9 Anemia, unspecified; E11.51 Type 2 diabetes mellitus with diabetic peripheral angiopathy without gangrene; I48.91 Unspecified atrial fibrillation; I10 Essential (primary) hypertension; I25.10 Atherosclerotic heart disease of native coronary artery without angina pectoris; F33.1 Major depressive disorder, recurrent, moderate; F17.210 Nicotine dependence, cigarettes, uncomplicated; Z71.6 Tobacco abuse counseling; Z79.899 Other long term (current) drug therapy; Z79.01 Long term (current) use of anticoagulants; Z79.84 Long term (current) use of oral hypoglycemic drugs; Z92.82 Status post administration of tPA (rtPA) in a different facility within the last 24 hours prior to admission to current facility
CPT/HCPCS: 36415; 70450; 70496; 70498; 80048; 82550; 82947; 84484; 85025; 85610; 85730; 93005; 96365; 99285; J2997; Q9967